=== PATIENT | female | born 1985 | race Caucasian/White ===

== ENCOUNTER 2017-09-21 13:40 | Emergency (ER) | payer OTHER, BC ==
[2017-09-21 14:05] VITALS: BP 105/65; PULSE 79; TEMP 98.2; BMI 27.4
[2017-09-21] MEDS ORDERED: IBUPROFEN 600 MG TABLET (FP) PO ONE ×2 (14:42→14:43)
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
== END 2017-09-21 14:48 | disposition home or self-care (01) ==
LOC: FER 13:40
DX: S40.012A Contusion of left shoulder, initial encounter (principal); V43.52XA Car driver injured in collision with other type car in traffic accident, initial encounter; Y93.89 Activity, other specified; Y92.410 Unspecified street and highway as the place of occurrence of the external cause
CPT/HCPCS: 99281-25